=== PATIENT | male | born 1945 | race Caucasian/White ===

== ENCOUNTER 2017-04-24 13:31 | Inpatient (IN) | payer MEDICARE, BC ==
[2017-04-24] MEDS: Sodium Chloride 0.9% 1,000 ML IV SCH (13:40)
--- NOTE | 2017-04-24 13:41 | PCM.HP ---
H&P History of Present Illness - General Date of Service: 04/24/17 Admit Problem/Dx: Cellulitis of his left hand and arm. Source of Information: Patient History Limitations: Reports: No Limitations - History of Present Illness Initial Comments - Free Text/Narative: Patient was in the clinic and saw his provider for cellulitis; was tx with IV Rocephin and sent home with Keflex. Is back in today with a significant increase in redness, swelling that is streaking up his arm. Unsure of fever. Hx of this several of years ago where he became septic. Onset of Symptoms: Reports: Gradual Duration of Symptoms: Reports: Day(s): (4), Getting Worse Quality: Reports: Throbbing Severity: Severe Improves with: Reports: None Worsens with: Reports: Movement Associated Symptoms: Reports: No Other Symptoms (denies fever, heart palpitations, nausea or vomiting) - Related Data Allergies/Adverse Reactions: Allergies Allergy/AdvReac Type Severity Reaction Status Date / Time ciprofloxacin [From Cipro] Allergy Unknown Edema Verified 02/12/16 12:12 Home Medications: Home Meds Albuterol Sulfate 1 ampule INH QID PRN 02/09/14 [History] Albuterol [Ventolin HFA] 1 puff INH Q6H PRN 02/09/14 [History] Carvedilol [Coreg] 12.5 mg PO BID 02/09/14 [History] Fexofenadine HCl [La Allergy] 60 mg PO DAILY 02/09/14 [History] Montelukast [Singulair] 10 mg PO DAILY 02/09/14 [History] Roflumilast [Daliresp] 500 mcg PO DAILY 02/09/14 [History] Simvastatin [Zocor] 40 mg PO BEDTIME 02/09/14 [History] Tiotropium [Spiriva HandiHaler] 1 puff INH DAILY 02/09/14 [History] Warfarin [Coumadin] 5 mg PO DAILY 02/09/14 [History] Ascorbate Calcium/Bioflavonoid [Catalina-C 1,000 mg Tablet] 1 tab PO DAILY [History] Calcium Carbonate/Vitamin D3 [Caltrate 600 + D Tablet] 1 tab PO DAILY 05/04/14 [ History] Omeprazole 40 mg PO DAILY PRN 05/04/14 [History] predniSONE [Prednisone] 2.5 mg PO DAILY 03/05/16 [History] Past Medical History HEENT History: Reports: Glaucoma Cardiovascular History: Reports: Blood Clots/VTE/DVT, Cardiomyopathy, Heart Failure, Heart Murmur, High Cholesterol Respiratory History: Reports: COPD, PE Gastrointestinal History: Reports: Other (See Below) Other Gastrointestinal History: Pt has had a hx of gallbladder pain Hematologic History: Reports: Other (See Below) Other Hematologic History: braden 1, Factor leiden 5 - Past Surgical History HEENT Surgical History: Reports: Tonsillectomy Respiratory Surgical History: Reports: None Social & Family History - Tobacco Use Smoking Status *Q: Former Smoker Years of Tobacco use: 50 Used Tobacco, but Quit: No Month Tobacco Last Used: 2010 Second Hand Smoke Exposure: No - Alcohol Use Days Per Week of Alcohol Use: 7 Number of Drinks Per Day: 1 Total Drinks Per Week: 7 - Recreational Drug Use Recreational Drug Use: No H&P Review of Systems - Review of Systems: Review Of Systems: See Below General: Reports: No Symptoms HEENT: Reports: No Symptoms Pulmonary: Reports: Shortness of Breath, Wheezing, Cough (Not new symptoms) Cardiovascular: Reports: No Symptoms Gastrointestinal: Reports: No Symptoms Genitourinary: Reports: No Symptoms Musculoskeletal: Reports: Arm Pain, Hand Pain Skin: Reports: Erythema (swollen, tender, red streaking up arm) Psychiatric: Reports: No Symptoms Exam - Exam Exam: See Below - Vital Signs Vital Signs: BP 118/48 Temp 97.5, pulse 65 Weight: 178 lb - Exam Quality Assessment: Supplemental Oxygen (2 L NC always) General: Alert, Oriented, Cooperative HEENT: Other (left conjunctiva is red, swollen) Neck: Supple, Trachea Midline Lungs: Decreased Breath Sounds Cardiovascular: Regular Rate, Regular Rhythm GI/Abdominal Exam: Normal Bowel Sounds Extremities: Arm Pain, Limited Range of Motion, Increased Warmth, Redness ( upper left hand and arm) Peripheral Pulses: 4+: Radial (L), Radial (R) Skin: Warm, Dry, Intact Neuro Extensive - Mental Status: Alert, Oriented x3, Normal Mood/Affect Neuro Extensive - Motor, Sensory, Reflexes: CN II-XII Intact, Normal Gait Psychiatric: Alert, Normal Affect, Normal Mood *Q Meaningful Use (ADM) - VTE *Q VTE Criteria *Q: - Stroke *Q Stroke Criteria *Q: - AMI *Q AMI Criteria *Q: - Problem List (1) Cellulitis of left hand SNOMED Code(s): 14170645 ICD Code: L03.114 - CELLULITIS OF LEFT UPPER LIMB Status: Acute Priority : High Current Visit: Yes Problem List Initiated/Reviewed/Updated: Yes Orders Last 24hrs: Admission to hospital IV fluids and IV antibiotics;
[2017-04-24] MEDS ORDERED: Acetaminophen 500 MG Tab PO PRN (13:45)
[2017-04-24] MEDS ORDERED: Ondansetron 4 MG/2 ML SDV IVPUSH PRN (13:46)
[2017-04-24] MEDS: cefTRIAXone 1 GM in Sodium Chloride 0.9% 100 ML IV SCH (15:05)
[2017-04-24] MEDS ORDERED: ALBUTEROL INH PRN (15:32)
[2017-04-24] MEDS ORDERED: ALBUTEROL SULFATE INH PRN (15:32)
[2017-04-24] MEDS ORDERED: Non-Formulary Medication 1 Each (Budesonide [Pulmicort] 0.25 MG) IH SCH (15:45)
[2017-04-24] MEDS ORDERED: Non-Formulary Medication 1 Each (Formoterol [Perforomist] 20 MCG) NEB SCH (15:45)
[2017-04-24] MEDS: Clindamycin Phosphate 600 MG in Dextrose 5% in Water 50 ML IV SCH ×2 (16:21)
[2017-04-24] MEDS ORDERED: Albuterol 8 GM Inhaler INH PRN (16:28)
[2017-04-24] MEDS ORDERED: Budesonide 0.25 MG/2 ML Neb Susp INH SCH (16:45)
[2017-04-24] MEDS: Albuterol 0.083% 2.5 MG/3 ML Neb Soln INH PRN (17:53)
[2017-04-24] MEDS ORDERED: Warfarin 5 MG Tab PO SCH (18:00)
[2017-04-24] MEDS ORDERED: Melatonin 3 MG Tab PO PRN ×2 (18:06→20:00)
[2017-04-24] MEDS: Budesonide 0.25 MG/2 ML Neb Susp INH SCH (19:40)
[2017-04-24] MEDS: Arformoterol 15 MCG/2 ML Neb Soln INH SCH (19:59)
[2017-04-24] MEDS: Carvedilol 6.25 MG Tab PO SCH (20:00)
[2017-04-24] MEDS ORDERED: Simvastatin 40 MG Tab PO SCH (20:00)
[2017-04-24] MEDS ORDERED: Non-Formulary Medication 1 Each (Simvastatin [Zocor] 40 MG) PO SCH (20:00)
[2017-04-24] MEDS ORDERED: CARVEDILOL 6.25 MG PO SCH (20:00)
[2017-04-25] MEDS: cefTRIAXone 1 GM in Sodium Chloride 0.9% 100 ML IV SCH (03:34)
[2017-04-25] MEDS: Sodium Chloride 0.9% 1,000 ML IV SCH (03:35)
[2017-04-25] MEDS ORDERED: Clindamycin Phosphate 600 MG/4 ML SDV ONE (03:51)
[2017-04-25] MEDS: Clindamycin Phosphate 600 MG in Dextrose 5% in Water 50 ML IV SCH ×4 (04:19→08:00)
[2017-04-25] MEDS: Arformoterol 15 MCG/2 ML Neb Soln INH SCH ×2 (06:12→08:00)
[2017-04-25] MEDS: Budesonide 0.25 MG/2 ML Neb Susp INH SCH ×2 (06:13→08:00)
[2017-04-25] MEDS: Carvedilol 6.25 MG Tab PO SCH (07:56)
[2017-04-25] MEDS ORDERED: PREDNISONE 2 MG PO SCH (08:00)
[2017-04-25] MEDS ORDERED: Montelukast 10 MG Tab PO SCH (08:00)
[2017-04-25] MEDS ORDERED: Non-Formulary Medication 1 Each (Warfarin [Coumadin] 5 MG) PO SCH (08:00)
[2017-04-25] MEDS ORDERED: predniSONE 1 MG Tab PO SCH (08:00)
[2017-04-25] MEDS ORDERED: Non-Formulary Medication 1 Each (Roflumilast [Daliresp] 500 MCG) PO SCH (08:00)
[2017-04-25] MEDS ORDERED: Non-Formulary Medication 1 Each (Montelukast [Singulair] 10 MG) PO SCH (08:00)
[2017-04-25] MEDS ORDERED: Cetirizine 10 MG Tab PO SCH (08:00)
[2017-04-25] MEDS ORDERED: Tiotropium Inhaler 18 MCG Inhalation Powder Cap Kit of 5 INH SCH (08:00)
[2017-04-25] MEDS ORDERED: Roflumilast 500 MCG Tab PO SCH (08:00)
[2017-04-25] MEDS ORDERED: [UNRECOGNIZED DRUG - REMARK] PO SCH (08:00)
[2017-04-25] MEDS ORDERED: TIOTROPIUM INH SCH (08:00)
[2017-04-25 08:06] VITALS: BP 145/56
[2017-04-25] MEDS: Albuterol 0.083% 2.5 MG/3 ML Neb Soln INH PRN (08:41)
--- NOTE | 2017-04-25 10:24 | PCM.DCSUM1 ---
Discharge Summary - Hospital Course Free Text/Narrative:: Patient is leaving; he wants to go to a higher level of care facility; he will be going to [place]. Brief History: Cellulitis of left hand; traveling up. On rocephin, keflex and clinda without any improvement - Discharge Data Discharge Date: 04/25/17 Discharge Disposition: Home, Self-Care 01 Condition: Fair - Discharge Diagnosis/Problem(s) (1) Cellulitis of left hand SNOMED Code(s): 06922894 ICD Code: L03.114 - CELLULITIS OF LEFT UPPER LIMB Status: Acute Priority : High Current Visit: Yes - Patient Instructions Activity: As Tolerated Driving: Do Not Drive - Discharge Plan Home Medications: Home Meds Albuterol Sulfate 1 ampule INH QID PRN 02/09/14 [History] Albuterol [Ventolin HFA] 1 puff INH Q6H PRN 02/09/14 [History] Carvedilol [Coreg] 6.25 mg PO BID 02/09/14 [History] Fexofenadine HCl [La Allergy] 60 mg PO DAILY 02/09/14 [History] Montelukast [Singulair] 10 mg PO DAILY 02/09/14 [History] Roflumilast [Daliresp] 500 mcg PO DAILY 02/09/14 [History] Simvastatin [Zocor] 40 mg PO BEDTIME 02/09/14 [History] Tiotropium [Spiriva HandiHaler] 1 puff INH DAILY 02/09/14 [History] Warfarin [Coumadin] 5 mg PO DAILY 02/09/14 [History] Ascorbate Calcium/Bioflavonoid [Catalina-C 1,000 mg Tablet] 1 tab PO DAILY [History] predniSONE [Prednisone] 2 mg PO DAILY 03/05/16 [History] Budesonide [Pulmicort] 0.25 mg IH ASDIRECTED 04/24/17 [History] Formoterol [Perforomist] 20 mcg NEB BIDRT 04/24/17 [History] - Discharge Summary/Plan Comment DC Time >30 min.: Yes (coordinating care with other facility; going by POV; refuses ambulance) - General Info Date of Service: 04/25/17 - Review of Systems General: Reports: Fatigue Pulmonary: Reports: No Symptoms Cardiovascular: Reports: No Symptoms Gastrointestinal: Reports: No Symptoms Genitourinary: Reports: No Symptoms Musculoskeletal: Reports: Arm Pain Skin: Reports: Other (left arm is red, swollen) Neurological: Reports: No Symptoms Psychiatric: Reports: No Symptoms - Patient Data Vitals - Most Recent: Last Vital Signs Temp 98.3 F 04/25/17 04:54 Pulse 68 04/25/17 07:56 Resp 16 04/25/17 04:54 BP 145/56 H 04/25/17 07:56 Pulse Ox 96 04/25/17 04:54 Weight - Most Recent: 175 lb Lab Results - Last 24 hrs: Laboratory Results - last 24 hr 04/24/17 04/24/17 Range/Units 14:07 14:07 WBC 8.7 (4.0-11.0) K/uL RBC 3.93 L (4.50-6.50) M/uL Hgb 12.2 L (13.0-18.0) g/dL Hct 37.1 L (40.0-54.0) % MCV 94 (76-96) fL MCH 31.0 (27.0-32.0) pg MCHC 32.9 (31.0-35.0) g/dL RDW 13.7 (11.0-16.0) % Plt Count 166 (150-400) K/uL MPV 10.8 H (6.0-10.0) fL Sodium 139 (136-145) mmol/L Potassium 3.8 (3.5-5.1) mmol/L Chloride 102 (98-107) mmol/L Carbon Dioxide 32.0 (21.0-32.0) mmol/L Anion Gap 8.8 (5.0-15.0) mmol/L BUN 10 D (8-26) mg/dL Creatinine 0.85 (0.70-1.30) mg/dL Est Cr Clr Drug Dosing 78.66 mL/min Estimated GFR (MDRD) > 60 (>60) MLS/MIN BUN/Creatinine Ratio 11.8 (6-25) Glucose 121 H (74-100) mg/dL Calcium 8.8 (8.5-10.1) mg/dL Total Bilirubin 0.4 D (0.0-1.0) mg/dL AST 18 (15-37) U/L ALT 21 (12-78) U/L Alkaline Phosphatase 52 (46-116) U/L Total Protein 7.4 (6.4-8.2) g/dL Albumin 3.2 L (3.4-5.0) g/dL Globulin 4.2 (2.2-4.2) g/dL Albumin/Globulin Ratio 0.8 (0.8-2.0) Med Orders - Current: Current Medications Acetaminophen (Tylenol Extra Strength) 1,000 mg PO Q12H PRN PRN Reason: Pain Albuterol (Proventil Neb Soln) 2.5 mg INH QID PRN PRN Reason: Shortness of Breath Last Admin: 04/25/17 08:41 Dose: 2.5 mg Albuterol (Ventolin Hfa) 8 gm INH Q6H PRN PRN Reason: Shortness of Breath Arformoterol Tartrate (Brovana) 15 mcg INH BID [facility] Last Admin: 04/24/17 19:59 Dose: 15 mcg Budesonide (Pulmicort) 0.25 mg INH BID [facility] Last Admin: 04/25/17 06:13 Dose: 0.25 mg Carvedilol (Coreg) 6.25 mg PO BID [facility] Last Admin: 04/25/17 07:56 Dose: 6.25 mg Cetirizine HCl (Zyrtec) 10 mg PO DAILY [facility] Last Admin: 04/25/17 07:57 Dose: 10 mg Ceftriaxone Sodium 1 gm/ (Sodium Chloride) 100 mls @ 200 mls/hr IV Q12H [facility] Last Admin: 04/25/17 03:34 Dose: 200 mls/hr Sodium Chloride (Normal Saline) 1,000 mls @ 75 mls/hr IV ASDIRECTED [facility] Last Admin: 04/25/17 03:35 Dose: 75 mls/hr Clindamycin Phosphate 600 mg/ (Dextrose/Water) 54 mls @ 150 mls/hr IV Q8H [facility] Last Admin: 04/25/17 04:19 Dose: 150 mls/hr Melatonin (Melatonin) 6 mg PO BEDTIME PRN PRN Reason: Insomnia Montelukast Sodium (Singulair) 10 mg PO DAILY [facility] Last Admin: 04/25/17 07:56 Dose: 10 mg Ondansetron HCl (Zofran) 4 mg IVPUSH Q6H PRN PRN Reason: Nausea/Vomiting Prednisone (Prednisone) 2 mg PO DAILY [facility] Roflumilast (Daliresp) 500 mcg PO DAILY [facility] Last Admin: 04/25/17 07:56 Dose: 500 mcg Simvastatin (Zocor) 40 mg PO BEDTIME [facility] Last Admin: 04/24/17 20:00 Dose: 40 mg Tiotropium [place] (Spiriva Handihaler) 18 mcg INH DAILY [facility] Last Admin: 04/25/17 08:03 Dose: 18 mcg Warfarin Sodium (Coumadin) 5 mg PO DAILY@1800 [facility] Last Admin: 04/24/17 18:01 Dose: Not Given Discontinued Medications Budesonide (Pulmicort) 0.25 mg INH ASDIRECTED [facility] Melatonin (Melatonin) 5 mg PO BEDTIME PRN PRN Reason: Sleep - Exam General: Reports: Alert, Oriented Lungs: Reports: Clear to Auscultation, Normal Respiratory Effort Cardiovascular: Reports: Regular Rate, Regular Rhythm GI/Abdominal Exam: Normal Bowel Sounds, Soft, Non-Tender Extremities: Arm Pain, Limited Range of Motion, Increased Warmth, Redness, Other (swollen) Skin: Reports: Warm, Dry Neurological: Reports: No New Focal Deficit *Q Meaningful Use (DIS) - VTE *Q VTE Criteria *Q: - Stroke *Q Stroke Criteria *Q: - AMI *Q AMI Criteria *Q:
== END 2017-04-25 10:00 | DRG 603 ==
LOC: UNDOADMIN 13:31 → LB.MS 13:31
PROVIDERS: ADMIT Nurse Practitioner Family; ATTEND Nurse Practitioner Family
DX: L03.114 Cellulitis of left upper limb (principal); I42.9 Cardiomyopathy, unspecified; D68.51 Activated protein C resistance; J44.9 Chronic obstructive pulmonary disease, unspecified; Z86.718 Personal history of other venous thrombosis and embolism; Z86.711 Personal history of pulmonary embolism; I50.9 Heart failure, unspecified; E88.01 Alpha-1-antitrypsin deficiency; Z88.1 Allergy status to other antibiotic agents; Z79.52 Long term (current) use of systemic steroids; Z79.01 Long term (current) use of anticoagulants
CPT/HCPCS: 36415; 80053; 85027; A9270-GY; J0696; J7030; J7040; J7060; J7605; J7634; S0077

== ENCOUNTER 2018-04-27 13:39 | Inpatient (IN) | payer MEDICARE, BC ==
[2018-04-27] MEDS: methylPREDNISolone Sodium Succinate 125 MG/2 ML SDV IVPUSH SCH (14:38)
[2018-04-27] MEDS: cefTRIAXone 1 GM in Sodium Chloride 0.9% 50 ML IV SCH (14:49)
[2018-04-27] MEDS: Azithromycin 250 MG Tab PO SCH (14:50)
--- NOTE | 2018-04-27 15:15 | EDM.PDOC ---
ED HPI GENERAL MEDICAL PROBLEM - General Chief Complaint: General Stated Complaint: SOB Time Seen by Provider: 04/27/18 14:00 Source of Information: Reports: Patient History Limitations: Reports: No Limitations - History of Present Illness INITIAL COMMENTS - FREE TEXT/NARRATIVE: This is a 72yo M here for shortness of breath Onset: Gradual Duration: Day(s):, Getting Worse Location: Reports: Chest Associated Symptoms: Reports: Cough, Shortness of Breath Treatments FOOT CUTTER: Reports: Home Treatments - Related Data Allergies Allergy/AdvReac Type Severity Reaction Status Date / Time ciprofloxacin [From Cipro] Allergy Unknown Edema Verified 05/08/17 13:10 Home Meds: Home Meds Albuterol Sulfate 1 ampule INH QID PRN 02/09/14 [History] Albuterol [Ventolin HFA] 1 puff INH Q6H PRN 02/09/14 [History] Carvedilol [Coreg] 6.25 mg PO BID 02/09/14 [History] Fexofenadine HCl [La Allergy] 60 mg PO DAILY 02/09/14 [History] Montelukast [Singulair] 10 mg PO BEDTIME 02/09/14 [History] Roflumilast [Daliresp] 500 mcg PO DAILY 02/09/14 [History] Simvastatin [Zocor] 40 mg PO BEDTIME 02/09/14 [History] Tiotropium [Spiriva HandiHaler] 1 puff INH DAILY 02/09/14 [History] Warfarin [Coumadin] 5 mg PO DAILY 02/09/14 [History] Ascorbate Calcium/Bioflavonoid [Catalina-C 1,000 mg Tablet] 1 tab PO DAILY [History] Budesonide [Pulmicort] 0.25 mg IH ASDIRECTED 04/24/17 [History] Formoterol [Perforomist] 20 mcg NEB BIDRT 04/24/17 [History] Furosemide 20 mg PO DAILY 04/27/18 [History] predniSONE 5 mg PO DAILY 04/27/18 [History] Past Medical History HEENT History: Reports: Glaucoma Cardiovascular History: Reports: Blood Clots/VTE/DVT, Cardiomyopathy, Heart Failure, Heart Murmur, High Cholesterol Respiratory History: Reports: COPD, PE Gastrointestinal History: Reports: Other (See Below) Other Gastrointestinal History: Pt has had a hx of gallbladder pain Hematologic History: Reports: Other (See Below) Other Hematologic History: braden 1, Factor leiden 5 - Past Surgical History HEENT Surgical History: Reports: Tonsillectomy Respiratory Surgical History: Reports: None Social & Family History - Family History Family Medical History: Noncontributory ED ROS GENERAL - Review of Systems Review Of Systems: ROS reveals no pertinent complaints other than HPI. ED EXAM, GENERAL - Physical Exam Exam: See Below Exam Limited By: No Limitations General Appearance: Alert, WD/WN, Moderate Distress Ears: Normal External Exam, Normal TMs Nose: Normal Inspection Throat/Mouth: Normal Inspection Head: Atraumatic, Normocephalic Neck: Normal Inspection Respiratory/Chest: Decreased Breath Sounds, Wheezing Cardiovascular: Normal Peripheral Pulses, Regular Rate, Rhythm GI/Abdominal: Normal Bowel Sounds Back Exam: Normal Inspection Extremities: Normal Inspection Neurological: Alert, Oriented, CN II-XII Intact Psychiatric: Normal Affect, Normal Mood Skin Exam: Warm, Dry, Intact Course - Vital Signs Last Recorded V/S: Last Vital Signs Temp 36.7 C 04/27/18 14:05 Pulse 69 04/27/18 14:05 Resp 20 04/27/18 14:05 BP 161/66 H 04/27/18 14:05 Pulse Ox 93 L 04/27/18 14:05 - Orders/Labs/Meds Orders: Active Orders 24 hr Category Date Time Status Chest 1V Frontal [CR] Stat Exams 04/27/18 14:23 Taken Azithromycin [Zithromax] Med 04/27/18 14:30 Active 500 mg PO DAILY cefTRIAXone [Rocephin] 1 gm Med 04/27/18 14:30 Active Sodium Chloride 0.9% [Normal Saline] 50 ml IV Q24H methylPREDNISolone Sod Succ [Solu-MEDROL] Med 04/27/18 14:30 Active 125 mg IVPUSH Q12H Medication Orders Albuterol (Ventolin Hfa) gm INH Q6H PRN PRN Reason: Dyspnea Azithromycin (Zithromax) 500 mg PO DAILY [facility] Last Admin: 04/27/18 14:50 Dose: 500 mg Budesonide (Pulmicort) 0.25 mg INH ASDIRECTED [facility] Carvedilol (Coreg) 6.25 mg PO BID [facility] Fexofenadine HCl (La) 60 mg PO DAILY [facility] Furosemide (Lasix) 20 mg PO DAILY [facility] Ceftriaxone Sodium 1 gm/ (Sodium Chloride) 50 mls @ 200 mls/hr IV Q24H [facility] Last Admin: 04/27/18 14:49 Dose: 200 mls/hr Methylprednisolone Sodium Succinate (Solu-Medrol) 125 mg IVPUSH Q12H [facility] Last Admin: 04/27/18 14:38 Dose: 125 mg Montelukast Sodium (Singulair) 10 mg PO BEDTIME [facility] Non-Formulary Medication (Albuterol Sulfate [Albuterol Sulfate]) 1 ampule INH QID PRN PRN Reason: Dyspnea Non-Formulary Medication (Ascorbate Calcium/Bioflavonoid [Catalina-C 1,000 Mg Tablet]) 1 tab PO DAILY [facility] Non-Formulary Medication (Formoterol [Perforomist]) 20 mcg NEB BIDRT [facility] Prednisone (Prednisone) 5 mg PO DAILY [facility] Roflumilast (Daliresp) 500 mcg PO DAILY [facility] Simvastatin (Zocor) 40 mg PO BEDTIME [facility] Tiotropium [place] (Spiriva Handihaler) mcg INH DAILY [facility] Warfarin Sodium (Coumadin) 5 mg PO DAILY [facility] Meds: Medications Generic Name Dose Route Start Last Admin Trade Name Freq PRN Reason Stop Dose Admin Albuterol gm 04/27/18 16:01 Ventolin Hfa INH Q6H PRN Dyspnea Azithromycin 500 mg 04/27/18 14:30 04/27/18 14:50 Zithromax PO 500 mg DAILY [facility] Administration Budesonide 0.25 mg 04/27/18 16:15 Pulmicort INH ASDIRECTED [facility] Carvedilol 6.25 mg 04/27/18 20:00 Coreg PO BID [facility] Fexofenadine HCl 60 mg 04/28/18 08:00 La PO DAILY [facility] Furosemide 20 mg 04/28/18 08:00 Lasix PO DAILY [facility] Ceftriaxone Sodium 1 gm/ 50 mls @ 200 mls/hr 04/27/18 14:30 04/27/18 14:49 Sodium Chloride IV 200 mls/hr Q24H [facility] Administration Methylprednisolone Sodium Succinate 125 mg 04/27/18 14:30 04/27/18 14:38 Solu-Medrol IVPUSH 125 mg Q12H [facility] Administration Montelukast Sodium 10 mg 04/27/18 20:00 Singulair PO BEDTIME [facility] Non-Formulary Medication 1 ampule 04/27/18 16:01 Albuterol Sulfate [Albuterol Sulfate] INH QID PRN Dyspnea Non-Formulary Medication 1 tab 04/27/18 16:15 Ascorbate Calcium/Bioflavonoid [Catalina-C 1,000 Mg Tablet] PO DAILY [facility] Non-Formulary Medication 20 mcg 04/27/18 16:15 Formoterol [Perforomist] NEB BIDRT [facility] Prednisone 5 mg 04/28/18 08:00 Prednisone PO DAILY [facility] Roflumilast 500 mcg 04/28/18 08:00 Daliresp PO DAILY [facility] Simvastatin 40 mg 04/27/18 20:00 Zocor PO BEDTIME [facility] Tiotropium [place] mcg 04/28/18 08:00 Spiriva Handihaler INH DAILY [facility] Warfarin Sodium 5 mg 04/28/18 08:00 Coumadin PO DAILY [facility] - Re-Assessments/Exams Free Text/Narrative Re-Assessment/Exam: Patient given nebulizer treatment, solumedrol and rechecked breathing. Continued wheezing and difficulty catching breath despite maintenance of oxygen saturation. Departure - Departure Time of Disposition: 15:30 Disposition: Admitted As Inpatient 64 Condition: Fair Clinical Impression: COPD exacerbation - Discharge Information - Problem List & Annotations (1) COPD exacerbation SNOMED Code(s): 787905214 Code(s): J44.1 - CHRONIC OBSTRUCTIVE PULMONARY DISEASE W (ACUTE) EXACERBATION Status: Acute Priority: High Current Visit: Yes - Problem List Review Problem List Initiated/Reviewed/Updated: Yes - My Orders Last 24 Hours: My Active Orders 04/27/18 14:23 Chest 1V Frontal [CR] Stat 04/27/18 14:30 Azithromycin [Zithromax] 500 mg PO DAILY cefTRIAXone [Rocephin] 1 gm Sodium Chloride 0.9% [Normal Saline] 50 ml IV Q24H methylPREDNISolone Sod Succ [Solu-MEDROL] 125 mg IVPUSH Q12H - Assessment/Plan Last 24 Hours: My Active Orders 04/27/18 14:23 Chest 1V Frontal [CR] Stat 04/27/18 14:30 Azithromycin [Zithromax] 500 mg PO DAILY cefTRIAXone [Rocephin] 1 gm Sodium Chloride 0.9% [Normal Saline] 50 ml IV Q24H methylPREDNISolone Sod Succ [Solu-MEDROL] 125 mg IVPUSH Q12H Plan: Patient admitted for COPD management. Start on solumedrol 125mcg q12, Rocephin and azithromycin. Monitor breathing status as directed.
[2018-04-27] MEDS ORDERED: Albuterol 8 GM Inhaler INH PRN (16:01)
[2018-04-27] MEDS ORDERED: Albuterol 0.083% 2.5 MG/3 ML Neb Soln INH PRN (16:15)
[2018-04-27] MEDS: Albuterol 0.083% 2.5 MG/3 ML Neb Soln INH SCH ×2 (18:24→21:00)
[2018-04-27] MEDS: Budesonide 0.25 MG/2 ML Neb Susp INH SCH (18:29)
[2018-04-27] MEDS: Carvedilol 12.5 MG Tab PO SCH (20:59)
[2018-04-27] MEDS: Simvastatin 40 MG Tab PO SCH (21:00)
[2018-04-27] MEDS: Montelukast 10 MG Tab PO SCH (21:00)
[2018-04-27] MEDS ORDERED: guaiFENesin 100 MG/5 ML Soln 10 ML UD Cup ONE (23:09)
[2018-04-27] MEDS ORDERED: guaiFENesin 100 MG/5 ML Soln 10 ML UD Cup PO PRN (23:30)
[2018-04-28] MEDS ORDERED: diphenhydrAMINE 25 MG Cap PO PRN (00:38)
[2018-04-28] MEDS: Zolpidem 5 MG Tab PO PRN ×2 (00:54→22:29)
[2018-04-28] MEDS: methylPREDNISolone Sodium Succinate 125 MG/2 ML SDV IVPUSH SCH ×2 (04:09→14:30)
[2018-04-28] MEDS: Albuterol 0.083% 2.5 MG/3 ML Neb Soln INH SCH ×5 (06:26→19:30)
[2018-04-28] MEDS: Azithromycin 250 MG Tab PO SCH (07:27)
[2018-04-28] MEDS: Tiotropium Inhaler 18 MCG Inhalation Powder Cap Kit of 5 INH SCH (07:27)
[2018-04-28] MEDS: Furosemide 20 MG Tab PO SCH (07:28)
[2018-04-28] MEDS: Budesonide 0.25 MG/2 ML Neb Susp INH SCH ×2 (07:28→21:59)
[2018-04-28] MEDS: Carvedilol 12.5 MG Tab PO SCH ×2 (07:29→19:30)
[2018-04-28] MEDS: Roflumilast 500 MCG Tab PO SCH (07:33)
[2018-04-28] MEDS: Warfarin 5 MG Tab PO SCH (07:33)
[2018-04-28] MEDS: predniSONE 5 MG Tab PO SCH (07:33)
--- NOTE | 2018-04-28 11:38 | CR ---
DATE OF SERVICE: 04/27/2018 CLINICAL DATA: Shortness of breath. PORTABLE AP CHEST: Comparison made to a prior exam dated 04/10/2014. There is a right-sided Port-A -Cath in place with its distal tip in the region of the superior vena cava. The heart size is normal. There is calcification of the aortic arch. There are mild atelectatic changes in the left lung base. There is a linear density in the right mid lung consistent with linear atelectasis or fibrosis. The lungs are otherwise clear. No pneumothorax. No pleural effusions. [id number] [facility]
[2018-04-28] MEDS: guaiFENesin 600 MG Tab.ER PO SCH ×2 (11:48→19:32)
--- NOTE | 2018-04-28 13:21 | PCM.PN ---
- General Info Date of Service: 04/28/18 Subjective Update: Patient continues to complain of shortness of breath. He denies any fever or chills. He states his symptoms have been persistent for the past month. No changes at this time per patient. - Review of Systems General: Reports: No Symptoms HEENT: Reports: No Symptoms Pulmonary: Reports: Shortness of Breath, Wheezing Cardiovascular: Reports: No Symptoms Gastrointestinal: Reports: No Symptoms Genitourinary: Reports: No Symptoms Musculoskeletal: Reports: No Symptoms - Patient Data Vitals - Most Recent: Last Vital Signs Temp 37.1 C 04/28/18 09:55 Pulse 80 04/28/18 09:55 Resp 12 04/28/18 09:55 BP 121/73 04/28/18 09:55 Pulse Ox 91 L 04/28/18 09:55 Weight - Most Recent: 75.75 kg Lab Results Last 24 Hours: Laboratory Results - last 24 hr 04/27/18 04/27/18 04/27/18 Range/Units 14:33 14:33 14:33 WBC 8.3 (4.0-11.0) K/uL RBC 4.43 L (4.50-6.50) M/uL Hgb 13.5 (13.0-18.0) g/dL Hct 40.9 (40.0-54.0) % MCV 92 (76-96) fL MCH 30.5 (27.0-32.0) pg MCHC 33.0 (31.0-35.0) g/dL RDW 13.4 (11.0-16.0) % Plt Count 188 (150-400) K/uL MPV 10.2 H (6.0-10.0) fL Neut % (Auto) 76.9 H (45.0-70.0) % Lymph % (Auto) 16.7 L (20.0-40.0) % [place] % (Auto) 5.6 (3.0-10.0) % Eos % (Auto) 0.6 L (1.0-5.0) % Baso % (Auto) 0.2 (0.0-0.5) % Neut # (Auto) 6.35 (2.00-7.50) K/uL Lymph # (Auto) 1.38 L (1.50-4.00) K/uL [place] # (Auto) 0.46 (0.20-0.80) K/uL Eos # (Auto) 0.05 (0.04-0.40) K/uL Baso # (Auto) 0.02 (0.02-0.10) K/uL PT 27.9 H D (9.0-11.5) sec INR 3.0 D (1.0-3.5) Sodium 139 (136-145) mmol/L Potassium 3.8 (3.5-5.1) mmol/L Chloride 98 (98-107) mmol/L Carbon Dioxide 34.8 H D (21.0-32.0) mmol/L Anion Gap 10.0 (5.0-15.0) mmol/L BUN 14 (8-26) mg/dL Creatinine 0.83 (0.70-1.30) mg/dL Est Cr Clr Drug Dosing 78.08 mL/min Estimated GFR (MDRD) > 60 (>60) MLS/MIN BUN/Creatinine Ratio 16.9 (6-25) Glucose 114 H (74-100) mg/dL Calcium 9.0 (8.5-10.1) mg/dL Total Bilirubin 0.6 D (0.0-1.0) mg/dL AST 22 (15-37) U/L ALT 32 (12-78) U/L Alkaline Phosphatase 63 (46-116) U/L Total Protein 7.6 (6.4-8.2) g/dL Albumin 3.5 (3.4-5.0) g/dL Globulin 4.1 (2.2-4.2) g/dL Albumin/Globulin Ratio 0.9 (0.8-2.0) TSH, Ultra Sensitive 1.341 (0.358-3.740) uIU/mL 04/28/18 04/28/18 04/28/18 Range/Units 07:10 07:10 07:10 WBC 8.0 (4.0-11.0) K/uL RBC 4.49 L (4.50-6.50) M/uL Hgb 13.9 (13.0-18.0) g/dL Hct 40.8 (40.0-54.0) % MCV 91 (76-96) fL MCH 31.0 (27.0-32.0) pg MCHC 34.1 (31.0-35.0) g/dL RDW 13.4 (11.0-16.0) % Plt Count 211 (150-400) K/uL MPV 10.4 H (6.0-10.0) fL Neut % (Auto) 83.1 H (45.0-70.0) % Lymph % (Auto) 15.8 L (20.0-40.0) % [place] % (Auto) 1.1 L (3.0-10.0) % Eos % (Auto) 0.0 L (1.0-5.0) % Baso % (Auto) 0.0 (0.0-0.5) % Neut # (Auto) 6.67 (2.00-7.50) K/uL Lymph # (Auto) 1.27 L (1.50-4.00) K/uL [place] # (Auto) 0.09 L (0.20-0.80) K/uL Eos # (Auto) 0.00 L (0.04-0.40) K/uL Baso # (Auto) 0.00 L (0.02-0.10) K/uL PT 32.1 H (9.0-11.5) sec INR 3.4 (1.0-3.5) Sodium 141 (136-145) mmol/L Potassium 4.0 (3.5-5.1) mmol/L Chloride 101 (98-107) mmol/L Carbon Dioxide 31.7 (21.0-32.0) mmol/L Anion Gap 12.3 (5.0-15.0) mmol/L BUN 14 (8-26) mg/dL Creatinine 0.79 (0.70-1.30) mg/dL Est Cr Clr Drug Dosing 82.04 mL/min Estimated GFR (MDRD) > 60 (>60) MLS/MIN BUN/Creatinine Ratio 17.7 (6-25) Glucose 145 H (74-100) mg/dL Calcium 8.8 (8.5-10.1) mg/dL Total Bilirubin (0.0-1.0) mg/dL AST (15-37) U/L ALT (12-78) U/L Alkaline Phosphatase (46-116) U/L Total Protein (6.4-8.2) g/dL Albumin (3.4-5.0) g/dL Globulin (2.2-4.2) g/dL Albumin/Globulin Ratio (0.8-2.0) TSH, Ultra Sensitive (0.358-3.740) uIU/mL Med Orders - Current: Current Medications Albuterol (Ventolin Hfa) 0 gm INH Q6H PRN PRN Reason: Dyspnea Albuterol (Proventil Neb Soln) 2.5 mg INH QID PRN PRN Reason: Dyspnea Albuterol (Proventil Neb Soln) 2.5 mg INH QID [facility] Last Admin: 04/28/18 11:12 Dose: 2.5 mg Azithromycin (Zithromax) 500 mg PO DAILY [facility] Last Admin: 04/28/18 07:27 Dose: 500 mg Budesonide (Pulmicort) 0.25 mg INH ASDIRECTED [facility] Last Admin: 04/28/18 07:28 Dose: 0.25 mg Carvedilol (Coreg) 6.25 mg PO BID [facility] Last Admin: 04/28/18 07:29 Dose: 6.25 mg Diphenhydramine HCl (Benadryl) 25 mg PO BEDTIME PRN PRN Reason: Insomnia Fexofenadine HCl (La) 60 mg PO DAILY [facility] Last Admin: 04/28/18 07:33 Dose: Not Given Furosemide (Lasix) 20 mg PO DAILY [facility] Last Admin: 04/28/18 07:28 Dose: 20 mg Guaifenesin (Robitussin) 200 mg PO Q4H PRN PRN Reason: Cough Last Admin: 04/27/18 23:19 Dose: 200 mg Guaifenesin (Mucinex) 600 mg PO BID [facility] Last Admin: 04/28/18 11:48 Dose: 600 mg Ceftriaxone Sodium 1 gm/ (Sodium Chloride) 50 mls @ 200 mls/hr IV Q24H [facility] Last Admin: 04/27/18 14:49 Dose: 200 mls/hr Methylprednisolone Sodium Succinate (Solu-Medrol) 125 mg IVPUSH Q12H [facility] Last Admin: 04/28/18 04:09 Dose: 125 mg Montelukast Sodium (Singulair) 10 mg PO BEDTIME [facility] Last Admin: 04/27/18 21:00 Dose: 10 mg Prednisone (Prednisone) 5 mg PO DAILY [facility] Last Admin: 04/28/18 07:33 Dose: 5 mg Roflumilast (Daliresp) 500 mcg PO DAILY [facility] Last Admin: 04/28/18 07:33 Dose: 500 mcg Simvastatin (Zocor) 40 mg PO BEDTIME [facility] Last Admin: 04/27/18 21:00 Dose: 40 mg Tiotropium [place] (Spiriva Handihaler) 18 mcg INH DAILY [facility] Last Admin: 04/28/18 07:27 Dose: 1 inhalation Warfarin Sodium (Coumadin) 5 mg PO DAILY [facility] Last Admin: 04/28/18 07:33 Dose: 5 mg Zolpidem Tartrate (Ambien) 5 mg PO BEDTIME PRN PRN Reason: Insomnia Last Admin: 04/28/18 00:54 Dose: 5 mg Discontinued Medications Guaifenesin (Robitussin) Confirm Administered Dose 200 mg .ROUTE .STK-MED ONE Stop: 04/27/18 23:10 Last Admin: 04/27/18 23:20 Dose: Not Given Non-Formulary Medication (Ascorbate Calcium/Bioflavonoid [[place]-C 1,000 Mg Tablet]) 1 tab PO DAILY [facility] Last Admin: 04/28/18 07:34 Dose: Not Given - Exam General: Alert, Oriented, Cooperative, Mild Distress HEENT: Pupils Equal, Pupils Reactive, EOMI Neck: Supple Lungs: Rhonchi, Wheezing Cardiovascular: Regular Rate, Regular Rhythm Back Exam: Normal Inspection Extremities: Normal Inspection - Problem List & Annotations (1) COPD exacerbation SNOMED Code(s): 621626356 Code(s): J44.1 - CHRONIC OBSTRUCTIVE PULMONARY DISEASE W (ACUTE) EXACERBATION Status: Acute Priority: High Current Visit: Yes - Problem List Review Problem List Initiated/Reviewed/Updated: Yes - My Orders Last 24 Hours: My Active Orders 04/27/18 14:25 Patient Status [ADT] Routine Oxygen Therapy [RC] PRN Vital Signs [RC] Q4H 04/27/18 14:30 Azithromycin [Zithromax] 500 mg PO DAILY cefTRIAXone [Rocephin] 1 gm Sodium Chloride 0.9% [Normal Saline] 50 ml IV Q24H methylPREDNISolone Sod Succ [Solu-MEDROL] 125 mg IVPUSH Q12H 04/27/18 16:01 Albuterol [Ventolin HFA] 0 gm INH Q6H PRN 04/27/18 16:15 Albuterol [Proventil Neb Soln] 2.5 mg INH QID PRN Budesonide [Pulmicort] 0.25 mg INH ASDIRECTED 04/27/18 20:00 Albuterol [Proventil Neb Soln] 2.5 mg INH QID Carvedilol [Coreg] 6.25 mg PO BID Montelukast [Singulair] 10 mg PO BEDTIME Simvastatin [Zocor] 40 mg PO BEDTIME 04/27/18 23:30 guaiFENesin [Robitussin] 200 mg PO Q4H PRN 04/27/18 Dinner Heart Healthy Diet [DIET] 04/28/18 00:38 Zolpidem [Ambien] 5 mg PO BEDTIME PRN diphenhydrAMINE [Benadryl] 25 mg PO BEDTIME PRN 04/28/18 08:00 Fexofenadine [La] 60 mg PO DAILY Furosemide [Lasix] 20 mg PO DAILY Roflumilast [Daliresp] 500 mcg PO DAILY Tiotropium [Spiriva HandiHaler] 18 mcg INH DAILY Warfarin [Coumadin] 5 mg PO DAILY predniSONE 5 mg PO DAILY 04/28/18 11:45 guaiFENesin [Mucinex] 600 mg PO BID - Plan Plan:: Patient to continue on solumedrol dosing, antibiotics, nebulizers q 4 and prn. Discussed prognosis and plan of care. Patient understands his COPD and severity and will continue current treatment and management in the hospital.
[2018-04-28] MEDS: cefTRIAXone 1 GM in Sodium Chloride 0.9% 50 ML IV SCH (14:30)
[2018-04-28] MEDS ORDERED: Loperamide 2 MG Cap PO PRN (15:16)
[2018-04-28] MEDS: Montelukast 10 MG Tab PO SCH (19:31)
[2018-04-28] MEDS: Simvastatin 40 MG Tab PO SCH (19:31)
[2018-04-29] MEDS: methylPREDNISolone Sodium Succinate 125 MG/2 ML SDV IVPUSH SCH ×2 (02:13→14:59)
[2018-04-29] MEDS: Budesonide 0.25 MG/2 ML Neb Susp INH SCH (07:07)
[2018-04-29] MEDS: Furosemide 20 MG Tab PO SCH (07:07)
[2018-04-29] MEDS: predniSONE 5 MG Tab PO SCH (07:07)
[2018-04-29] MEDS: Tiotropium Inhaler 18 MCG Inhalation Powder Cap Kit of 5 INH SCH (07:07)
[2018-04-29] MEDS: Albuterol 0.083% 2.5 MG/3 ML Neb Soln INH SCH ×4 (07:08→19:23)
[2018-04-29] MEDS: Azithromycin 250 MG Tab PO SCH (07:08)
[2018-04-29] MEDS: Carvedilol 12.5 MG Tab PO SCH ×2 (07:08→19:24)
[2018-04-29] MEDS: Roflumilast 500 MCG Tab PO SCH (07:08)
[2018-04-29] MEDS: Warfarin 5 MG Tab PO SCH (07:08)
[2018-04-29] MEDS: guaiFENesin 600 MG Tab.ER PO SCH ×2 (07:08→19:24)
[2018-04-29] MEDS: Arformoterol 15 MCG/2 ML Neb Soln INH SCH ×2 (08:12→19:24)
[2018-04-29] MEDS ORDERED: LORazepam 2 MG/ML SDV IVPUSH ONE (12:02)
--- NOTE | 2018-04-29 13:39 | PCM.PN ---
- General Info Date of Service: 04/29/18 Subjective Update: Patient is still having difficulty with shortness of breath. His saturation is stable. He denies any chest pain but continues to have difficulty catching his breath. He denies other concerns today. - Review of Systems HEENT: Reports: No Symptoms Pulmonary: Reports: Shortness of Breath Cardiovascular: Reports: No Symptoms Gastrointestinal: Reports: No Symptoms Genitourinary: Reports: No Symptoms Musculoskeletal: Reports: No Symptoms Skin: Reports: No Symptoms Neurological: Reports: No Symptoms Psychiatric: Reports: No Symptoms - Patient Data Vitals - Most Recent: Last Vital Signs Temp 36.2 C 04/29/18 11:52 Pulse 94 04/29/18 11:52 Resp 24 H 04/29/18 11:52 BP 136/55 L 04/29/18 11:52 Pulse Ox 80 L 04/29/18 11:52 Weight - Most Recent: 75.75 kg Lab Results Last 24 Hours: Laboratory Results - last 24 hr 04/29/18 Range/Units 12:19 B-Natriuretic Peptide 1547 H D (0-125) pg/mL Med Orders - Current: Current Medications Albuterol (Ventolin Hfa) 0 gm INH Q6H PRN PRN Reason: Dyspnea Albuterol (Proventil Neb Soln) 2.5 mg INH QID PRN PRN Reason: Dyspnea Last Admin: 04/29/18 04:43 Dose: 2.5 mg Albuterol (Proventil Neb Soln) 2.5 mg INH QID [facility] Last Admin: 04/29/18 12:00 Dose: 2.5 mg Arformoterol Tartrate (Brovana) 15 mcg INH BID [facility] Last Admin: 04/29/18 08:12 Dose: Not Given Azithromycin (Zithromax) 500 mg PO DAILY [facility] Last Admin: 04/29/18 07:08 Dose: 500 mg Budesonide (Pulmicort) 0.25 mg INH ASDIRECTED [facility] Last Admin: 04/29/18 07:07 Dose: 0.25 mg Carvedilol (Coreg) 6.25 mg PO BID [facility] Last Admin: 04/29/18 07:08 Dose: 6.25 mg Diphenhydramine HCl (Benadryl) 25 mg PO BEDTIME PRN PRN Reason: Insomnia Fexofenadine HCl (La) 60 mg PO DAILY [facility] Last Admin: 04/29/18 07:09 Dose: Not Given Furosemide (Lasix) 20 mg PO DAILY [facility] Last Admin: 04/29/18 07:07 Dose: 20 mg Guaifenesin (Robitussin) 200 mg PO Q4H PRN PRN Reason: Cough Last Admin: 04/27/18 23:19 Dose: 200 mg Guaifenesin (Mucinex) 600 mg PO BID [facility] Last Admin: 04/29/18 07:08 Dose: 600 mg Ceftriaxone Sodium 1 gm/ (Sodium Chloride) 50 mls @ 200 mls/hr IV Q24H [facility] Last Admin: 04/28/18 14:30 Dose: 200 mls/hr Loperamide HCl (Imodium) 2 mg PO Q4H PRN PRN Reason: Diarrhea Last Admin: 04/28/18 15:56 Dose: 2 mg Methylprednisolone Sodium Succinate (Solu-Medrol) 125 mg IVPUSH Q12H [facility] Last Admin: 04/29/18 02:13 Dose: 125 mg Montelukast Sodium (Singulair) 10 mg PO BEDTIME [facility] Last Admin: 04/28/18 19:31 Dose: 10 mg Azelastine Nasal ([place]) 1 each INH BID [facility] Prednisone (Prednisone) 5 mg PO DAILY [facility] Last Admin: 04/29/18 07:07 Dose: 5 mg Roflumilast (Daliresp) 500 mcg PO DAILY [facility] Last Admin: 04/29/18 07:08 Dose: 500 mcg Simvastatin (Zocor) 40 mg PO BEDTIME [facility] Last Admin: 04/28/18 19:31 Dose: 40 mg Tiotropium [place] (Spiriva Handihaler) 18 mcg INH DAILY [facility] Last Admin: 04/29/18 07:07 Dose: 1 inhalation Warfarin Sodium (Coumadin) 5 mg PO DAILY [facility] Last Admin: 04/29/18 07:08 Dose: 5 mg Discontinued Medications Guaifenesin (Robitussin) Confirm Administered Dose 200 mg .ROUTE .STK-MED ONE Stop: 04/27/18 23:10 Last Admin: 04/27/18 23:20 Dose: Not Given Lorazepam (Ativan) 0.5 mg IVPUSH ONETIME ONE Stop: 04/29/18 12:03 Last Admin: 04/29/18 12:41 Dose: 0.5 mg Non-Formulary Medication (Ascorbate Calcium/Bioflavonoid [[place]-C 1,000 Mg Tablet]) 1 tab PO DAILY [facility] Last Admin: 04/28/18 07:34 Dose: Not Given Zolpidem Tartrate (Ambien) 5 mg PO BEDTIME PRN PRN Reason: Insomnia Last Admin: 04/28/18 22:29 Dose: 5 mg - Exam General: Alert, Oriented, Cooperative HEENT: Pupils Equal Neck: Supple Lungs: Decreased Breath Sounds, Rhonchi Cardiovascular: Regular Rate, Regular Rhythm GI/Abdominal Exam: Normal Bowel Sounds Extremities: Normal Inspection - Problem List & Annotations (1) COPD exacerbation SNOMED Code(s): 196032022 Code(s): J44.1 - CHRONIC OBSTRUCTIVE PULMONARY DISEASE W (ACUTE) EXACERBATION Status: Acute Priority: High Current Visit: Yes - Problem List Review Problem List Initiated/Reviewed/Updated: Yes - My Orders Last 24 Hours: My Active Orders 04/28/18 15:16 Loperamide [Imodium] 2 mg PO Q4H PRN 04/29/18 08:00 Arformoterol [Brovana] 15 mcg INH BID 04/29/18 20:00 Non-Formulary Medication [NF Drug] 1 each INH BID - Plan Plan:: Patient to continue on solumedrol dosing, antibiotics, nebulizers q 4 and prn. Discussed prognosis and plan of care. Patient understands his COPD and severity and will continue current treatment and management in the hospital. BNP done today and was elevated. We will increase lasix and change to IV. Continue current COPD management. Start incentive spirometer.
[2018-04-29] MEDS: cefTRIAXone 1 GM in Sodium Chloride 0.9% 50 ML IV SCH (14:59)
[2018-04-29] MEDS ORDERED: LORazepam 2 MG/ML SDV IVPUSH PRN (15:04)
[2018-04-29] MEDS: Furosemide 40 MG/4 ML VIAL IVPUSH SCH (15:16)
[2018-04-29] MEDS: AZELASTINE NASAL SPRAY INH SCH (19:23)
[2018-04-29] MEDS: Simvastatin 40 MG Tab PO SCH (19:24)
[2018-04-29] MEDS: Montelukast 10 MG Tab PO SCH (19:24)
[2018-04-30] MEDS: methylPREDNISolone Sodium Succinate 125 MG/2 ML SDV IVPUSH SCH ×2 (02:29→10:31)
[2018-04-30] MEDS: predniSONE 5 MG Tab PO SCH (08:12)
[2018-04-30] MEDS: guaiFENesin 600 MG Tab.ER PO SCH (08:12)
[2018-04-30] MEDS: Roflumilast 500 MCG Tab PO SCH (08:12)
[2018-04-30] MEDS: Carvedilol 12.5 MG Tab PO SCH (08:12)
[2018-04-30] MEDS: Azithromycin 250 MG Tab PO SCH (08:13)
[2018-04-30] MEDS: Arformoterol 15 MCG/2 ML Neb Soln INH SCH (08:20)
[2018-04-30] MEDS: Albuterol 0.083% 2.5 MG/3 ML Neb Soln INH SCH ×2 (08:31→08:37)
[2018-04-30] MEDS: Budesonide 0.25 MG/2 ML Neb Susp INH SCH (08:31)
[2018-04-30] MEDS: Furosemide 40 MG/4 ML VIAL IVPUSH SCH (08:32)
[2018-04-30] MEDS: AZELASTINE NASAL SPRAY INH SCH (08:32)
[2018-04-30] MEDS: Tiotropium Inhaler 18 MCG Inhalation Powder Cap Kit of 5 INH SCH (09:00)
[2018-04-30] MEDS: Furosemide 20 MG Tab PO SCH (09:37)
[2018-04-30] MEDS: Warfarin 5 MG Tab PO SCH (09:37)
--- NOTE | 2018-04-30 10:25 | PCM.DCSUM1 ---
Discharge Summary - Discharge Data Discharge Date: 04/30/18 Discharge Disposition: Home, Self-Care 01 Condition: Good - Discharge Diagnosis/Problem(s) (1) COPD exacerbation SNOMED Code(s): 785988588 ICD Code: J44.1 - CHRONIC OBSTRUCTIVE PULMONARY DISEASE W (ACUTE) EXACERBATION Status: Acute Priority: High Current Visit: Yes - Patient Instructions Diet: Usual Diet as Tolerated Activity: As Tolerated - Discharge Plan Prescriptions/Med Rec: guaiFENesin [Mucinex] 600 mg PO BID #120 tab.er Home Medications: Home Meds Albuterol Sulfate 1 ampule INH QID PRN 02/09/14 [History] Albuterol [Ventolin HFA] 1 puff INH Q6H PRN 02/09/14 [History] Carvedilol [Coreg] 6.25 mg PO BID 02/09/14 [History] Fexofenadine HCl [La Allergy] 180 mg PO QPM 02/09/14 [History] Montelukast [Singulair] 10 mg PO BEDTIME 02/09/14 [History] Roflumilast [Daliresp] 500 mcg PO DAILY 02/09/14 [History] Simvastatin [Zocor] 40 mg PO BEDTIME 02/09/14 [History] Tiotropium [Spiriva HandiHaler] 1 puff INH DAILY 02/09/14 [History] Warfarin [Coumadin] 5 mg PO DAILY 02/09/14 [History] Ascorbate Calcium/Bioflavonoid [[place]-C 1,000 mg Tablet] 1 tab PO DAILY [History] Budesonide [Pulmicort] 0.25 mg IH ASDIRECTED 04/24/17 [History] Formoterol [Perforomist] 20 mcg NEB BIDRT 04/24/17 [History] Furosemide 20 mg PO DAILY 04/27/18 [History] predniSONE 5 mg PO DAILY 04/27/18 [History] guaiFENesin [Mucinex] 600 mg PO BID #120 tab.er 04/30/18 [Rx] Forms: ED Department Discharge Referrals: Osmin Odell MD [Primary Care Provider] - - Discharge Summary/Plan Comment DC Time >30 min.: Yes Discharge Summary/Plan Comment: Discussion of COPD management and medication adjustments and new medication use. Discussed Guaifenesin use and ativan use. 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 Patient placed on prednisone taper and to f/u with Pulmonology as directed. f/u in clinic in 1 week. - Patient Data Vitals - Most Recent: Last Vital Signs Temp 36.7 C 04/30/18 07:34 Pulse 84 04/30/18 07:34 Resp 22 H 04/30/18 07:34 BP 122/58 L 04/30/18 07:34 Pulse Ox 91 L 04/30/18 07:34 Weight - Most Recent: 73.21 kg Lab Results - Last 24 hrs: Laboratory Results - last 24 hr 04/29/18 04/29/18 Range/Units 12:19 12:20 Troponin I 0.027 D (0.000-0.060) ng/mL B-Natriuretic Peptide 1547 H D (0-125) pg/mL Med Orders - Current: Current Medications Albuterol (Ventolin Hfa) 0 gm INH Q6H PRN PRN Reason: Dyspnea Albuterol (Proventil Neb Soln) 2.5 mg INH QID PRN PRN Reason: Dyspnea Last Admin: 04/29/18 04:43 Dose: 2.5 mg Albuterol (Proventil Neb Soln) 2.5 mg INH QID [facility] Last Admin: 04/30/18 08:37 Dose: 2.5 mg Arformoterol Tartrate (Brovana) 15 mcg INH BID [facility] Last Admin: 04/30/18 08:20 Dose: 15 mcg Azithromycin (Zithromax) 500 mg PO DAILY [facility] Last Admin: 04/30/18 08:13 Dose: 500 mg Budesonide (Pulmicort) 0.25 mg INH ASDIRECTED [facility] Last Admin: 04/30/18 08:31 Dose: 0.25 mg Carvedilol (Coreg) 6.25 mg PO BID [facility] Last Admin: 04/30/18 08:12 Dose: 6.25 mg Diphenhydramine HCl (Benadryl) 25 mg PO BEDTIME PRN PRN Reason: Insomnia Last Admin: 04/29/18 19:24 Dose: 25 mg Fexofenadine HCl (La) 60 mg PO DAILY [facility] Last Admin: 04/30/18 08:20 Dose: Not Given Furosemide (Lasix) 20 mg PO DAILY [facility] Last Admin: 04/30/18 09:37 Dose: Not Given Furosemide (Lasix) 40 mg IVPUSH DAILY [facility] Last Admin: 04/30/18 08:32 Dose: 40 mg Guaifenesin (Robitussin) 200 mg PO Q4H PRN PRN Reason: Cough Last Admin: 04/27/18 23:19 Dose: 200 mg Guaifenesin (Mucinex) 600 mg PO BID [facility] Last Admin: 04/30/18 08:12 Dose: 600 mg Ceftriaxone Sodium 1 gm/ (Sodium Chloride) 50 mls @ 200 mls/hr IV Q24H [facility] Last Admin: 04/29/18 14:59 Dose: 200 mls/hr Loperamide HCl (Imodium) 2 mg PO Q4H PRN PRN Reason: Diarrhea Last Admin: 04/28/18 15:56 Dose: 2 mg Lorazepam (Ativan) 0.5 mg IVPUSH Q8H PRN PRN Reason: Anxiety Last Admin: 04/29/18 21:16 Dose: 0.5 mg Methylprednisolone Sodium Succinate (Solu-Medrol) 125 mg IVPUSH Q12H [facility] Last Admin: 04/30/18 02:29 Dose: 125 mg Montelukast Sodium (Singulair) 10 mg PO BEDTIME [facility] Last Admin: 04/29/18 19:24 Dose: 10 mg Azelastine Nasal ([place]) 1 each INH BID [facility] Last Admin: 04/30/18 08:32 Dose: 1 each Prednisone (Prednisone) 5 mg PO DAILY [facility] Last Admin: 04/30/18 08:12 Dose: 5 mg Roflumilast (Daliresp) 500 mcg PO DAILY [facility] Last Admin: 04/30/18 08:12 Dose: 500 mcg Simvastatin (Zocor) 40 mg PO BEDTIME [facility] Last Admin: 04/29/18 19:24 Dose: 40 mg Tiotropium [place] (Spiriva Handihaler) 18 mcg INH DAILY [facility] Last Admin: 04/30/18 09:00 Dose: 1 inhalation Warfarin Sodium (Coumadin) 5 mg PO DAILY [facility] Last Admin: 04/30/18 09:37 Dose: Not Given Discontinued Medications Guaifenesin (Robitussin) Confirm Administered Dose 200 mg .ROUTE .STK-MED ONE Stop: 04/27/18 23:10 Last Admin: 04/27/18 23:20 Dose: Not Given Lorazepam (Ativan) 0.5 mg IVPUSH ONETIME ONE Stop: 04/29/18 12:03 Last Admin: 04/29/18 12:41 Dose: 0.5 mg Non-Formulary Medication (Ascorbate Calcium/Bioflavonoid [[place]-C 1,000 Mg Tablet]) 1 tab PO DAILY [facility] Last Admin: 04/28/18 07:34 Dose: Not Given Zolpidem Tartrate (Ambien) 5 mg PO BEDTIME PRN PRN Reason: Insomnia Last Admin: 04/28/18 22:29 Dose: 5 mg
[2018-04-30] MEDS: cefTRIAXone 1 GM in Sodium Chloride 0.9% 50 ML IV SCH (10:35)
[2018-04-30 11:48] VITALS: BP 106/48
== END 2018-04-30 12:33 | disposition home or self-care (01) | DRG 191 ==
LOC: LB.ED 13:39 → LB.MS 14:25
PROVIDERS: ADMIT Family Medicine; ATTEND Family Medicine
DX: J44.1 Chronic obstructive pulmonary disease with (acute) exacerbation (principal); I42.9 Cardiomyopathy, unspecified; I50.9 Heart failure, unspecified; Z86.718 Personal history of other venous thrombosis and embolism; Z86.711 Personal history of pulmonary embolism; R06.02 Shortness of breath; E88.01 Alpha-1-antitrypsin deficiency; E78.00 Pure hypercholesterolemia, unspecified; Z88.1 Allergy status to other antibiotic agents; Z79.01 Long term (current) use of anticoagulants; Z79.52 Long term (current) use of systemic steroids
CPT/HCPCS: 36415; 71045; 80048; 80053; 83880; 84443; 84484; 85025; 85610; 93005; 99285; A0425; A0429; A9270-GY; J0696; J1940; J2060; J2930; J7050; J7605